=== PATIENT | female | born 1940 | race Caucasian/White ===

== ENCOUNTER 2024-02-25 10:50 | Emergency (ER) | payer OTHER, MEDICAID ==
[~2024-02-25] VITALS: Ht 157.5 cm; Wt 90.7 kg
[2024-02-25] MEDS ORDERED: BUPR150T10 (11:27)
[2024-02-25] MEDS ORDERED: DORZ10DR11 EACHEYE (11:27)
[2024-02-25] MEDS ORDERED: CARV3.122 (11:27)
[2024-02-25] MEDS ORDERED: BRIM10DR6 EACHEYE (11:27)
[2024-02-25] MEDS ORDERED: FURO20TA4 (11:27)
[2024-02-25] MEDS ORDERED: SACU1TAB (11:27)
[2024-02-25] MEDS ORDERED: POTA-10 (11:27)
[2024-02-25] MEDS ORDERED: ROSU10TA29 (11:27)
[2024-02-25] MEDS ORDERED: LEVO25TA9 PO (11:27)
[2024-02-25] MEDS ORDERED: KETOROLAC TROMETHAMINE 15 MG INJ ONE (11:29)
[2024-02-25] MEDS ORDERED: HYDROMORPHONE 1 MG/1 ML DISP.SYRIN ONE ×3 (11:29→18:28)
[2024-02-25] MEDS ORDERED: ONDANSETRON 4 MG/2 ML VIAL ONE (11:29)
[2024-02-25] MEDS: ONDANSETRON 4 MG/2 ML VIAL IV ONE (11:37)
[2024-02-25] MEDS: HYDROMORPHONE 1 MG/1 ML DISP.SYRIN IV ONE ×3 (11:37→18:37)
[2024-02-25] MEDS: IV NORMAL SALINE 500 ML BAG IV ONE (11:37)
[2024-02-25] MEDS: KETOROLAC TROMETHAMINE 15 MG INJ IVP ONE (11:37)
[2024-02-25 11:54] LABS: BASOPHILS # (AUTO) 0.1 K/UL (0.0-0.2); BASOPHILS % (AUTO) 0.6 % (0.0-2.0); EOSINOPHILS # (AUTO) 0.1 K/uL (0.0-0.7); EOSINOPHILS % (AUTO) 1.2 % (0.0-7.0); HEMATOCRIT 37.7 % (31.2-41.9); HEMOGLOBIN 12.4 g/dL (10.9-14.3); LYMPHOCYTES # (AUTO) 1.4 K/uL (0.8-4.8); LYMPHOCYTES % (AUTO) 12.2 % (20.5-51.5); MEAN CORPUSCULAR HGB CONC 33 g/dL (32.3-35.6); MEAN CORPUSCULAR VOLUME 85.4 fL (75.5-95.3); MONOCYTES # (AUTO) 0.5 K/uL (0.1-1.30); MONOCYTES % (AUTO) 4.3 % (0.0-11.0); NEUTROPHILS # (AUTO) 9.5 K/uL (1.8-8.9); NEUTROPHILS % (AUTO) 81.7 % (38.5-71.5); PLATELET COUNT (AUTO) 140 K/uL (179-408); RED BLOOD CELL COUNT(AUTO) 4.41 MIL/uL (3.63-4.92); RED CELL DISTRIBUTION WIDTH 14.6 % (12.3-17.7); WHITE BLOOD COUNT (AUTO) 11.6 K/uL (3.8-11.8)
[2024-02-25 11:56] LABS: DIFFERENTIAL COMMENT 1
[2024-02-25 12:12] LABS: CALCIUM 8.4 mg/dL (8.5-10.1); CARBON DIOXIDE 28 mmol/L (21-32); CHLORIDE 106 mmol/L (98-107); CREATININE 1.1 mg/dL (0.6-1.3); GLUCOSE 176 mg/dL (74-106); POTASSIUM 4.5 mmol/L (3.5-5.1); SODIUM SERUM 140 mmol/L (136-145); UREA NITROGEN, BLOOD 21 mg/dL (7-18)
[2024-02-25 13:17] LABS: *BILIRUBIN,URIN NEGATIVE (NEGATIVE); *CLARITY,URINE CLEAR (CLEAR); *COLOR,URINE YELLOW (YELLOW); *KETONES,URINE NEGATIVE (NEGATIVE); *PROTEIN,URINE NEGATIVE (NEGATIVE); *UROBILINOGEN,URINE 0.2 E.U./dl (NORMAL); LEUKOCYTE ESTERASE ,URINE 1+ (NEGATIVE); NITRITE, URINE POSITIVE (NEGATIVE); PH,URINE 5.5 (5.0-8.0); UGLUCOSE NEGATIVE (NEGATIVE)
[2024-02-25 13:18] LABS: *BLOOD, URINE TRACE (NEGATIVE)
[2024-02-25 13:19] LABS: BACTERIA,URINE MODERATE /HPF (NONE SEEN); SQUAMOUS EPITHELIAL CELL,UR MANY /HPF (NONE SEEN); URINE AMORPHOUS URATE FEW /HPF; WBC,URINE 20-50 /HPF (0-3)
[2024-02-25] MEDS ORDERED: CEFTRIAXONE /D5W 50ML IVPB **ER PYXIS IV ONE (14:13)
[2024-02-25] MEDS: CEFTRIAXONE 1 G in IV DEXTROSE 5% 50 ML IV ONE (14:22)
[2024-02-25 18:18] VITALS: O2SAT 97
== END 2024-02-25 19:02 ==
LOC: ER 10:50
DX: S72.142A Displaced intertrochanteric fracture of left femur, initial encounter for closed fracture (principal); N39.0 Urinary tract infection, site not specified; R94.31 Abnormal electrocardiogram [ECG] [EKG]; Z79.890 Hormone replacement therapy; W06.XXXA Fall from bed, initial encounter; Y93.89 Activity, other specified; Y92.89 Other specified places as the place of occurrence of the external cause; Y99.8 Other external cause status
CPT/HCPCS: 99285; 96365; 96375; 96366; 71045; 96361; 80048; 81001; 85025; 85730; 86850; 86900; 86901; 84484; 36415; 73502; 93005; 96376; J1885; J1171 ×3; J0696; J2405; J7040; A4606; A4663